=== PATIENT | male | born 1960 | race Caucasian/White ===

== ENCOUNTER 2022-11-27 22:55 | Emergency (ER) | payer MEDICAID, SELFPAY ==
[2022-11-27 23:17] VITALS: BP 215/132; PULSE 91; RESP 16; TEMP 36.6; O2SAT 98; BMI 31.5
--- NOTE | 2022-11-28 00:02 | PC.NURSE ---
patient hypertensive. patient states he has recently had a medication change to losartan and has been taking medication as prescribed. physician at bedside. manual done patient blood pressure 190/100 patient states his top number is usually 190. physician aware
--- NOTE | 2022-11-28 00:08 | XR_ITS ---
The [address] [address] Patient Name: RAMON MCMAHAN MRN: [id number] date: 1960 Sex: M Assigned Patient Location: ER Current Patient Location: ED.MAIN Accession/Order Number: [id number] Exam Date: 11/28/2022 00:22 Report Date: 11/28/2022 01:01 At the request of: BERNARDO PARDO Procedure: XR chest 1V EXAM: XR chest 1V HISTORY: weakness COMPARISON: Chest x-ray 05/16/2010. TECHNIQUE: AP portable upright view of the chest obtained. FINDINGS: The cardiomediastinal silhouette is nonenlarged. Pulmonary vascular markings are within normal limits. There is no focal airspace consolidation, sizable effusion or pneumothorax. The osseous structures appear grossly intact. IMPRESSION: No acute cardiopulmonary process identified. Electronically authenticated by: ANNETTE PENNY Date: 11/28/2022 01:01
--- NOTE | 2022-11-28 00:08 | ECG_ITS ---
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
--- NOTE | 2022-11-28 00:13 | ED.GENADUL1 ---
HPI - General Adult General Chief complaint: Headache Stated complaint: hEADACHE Time Seen by Provider: 11/28/22 00:08 Source: patient Limitations: no limitations History of Present Illness HPI narrative: Presents to emergency department complaining of a headache. Patient states he has had a gradual onset of headache for a couple of days. He has hypertension and also has been feeling chills, nausea, vomiting he is unable to keep anything down. He has been feeling fatigued and had 1 very large bowel movements diarrhea in the middle the night so he came in for evaluation. He denies any cough, sore throat, chest pain, shortness of breath. He states he has some nasal congestion. Denies any ear pain. He denies any paresthesias, or weakness. He denies any abdominal pain, hematuria, dysuria. He has taken all of his medications for hypertension. He denies any trauma. There are no other sick contacts in the household.This is not the worse headache of his lifetime. He was gradual onset. He has some photophobia. Related Data Home Medications Medication Instructions Recorded Confirmed albuterol sulfate 90 mcg/actuation inhalation 11/28/22 aerosol inhaler (Ventolin HFA) buprenorphine 8 mg-naloxone 2 mg film 11/28/22 sublingual film cefdinir 300 mg capsule mg 11/28/22 cholecalciferol (vitamin D3) 125 11/28/22 mcg (5,000 unit) tablet etodolac 500 mg tablet mg 11/28/22 glipizide 10 mg tablet mg 11/28/22 losartan 100 mg tablet mg 11/28/22 oxybutynin chloride 10 mg mg PO 11/28/22 tablet,extended release 24 hr quetiapine 50 mg tablet mg 11/28/22 sildenafil 100 mg tablet mg 11/28/22 Allergies Allergy/AdvReac Type Severity Reaction Status Date / Time No Known Drug Allergies Allergy Verified 11/27/22 23:23 Review of Systems ROS Status of ROS 10 or more systems reviewed and unremarkable except as noted in history and below [facility] Medical History (Updated 11/30/22 @ 09:01 by Pinky Diane MD) Social History Smoking status: Current every day smoker Exam Narrative Exam Narrative: Nurses notes and vital signs reviewed and patient is not hypoxic. General: Nontoxic, Well-appearing and in no apparent distress. Skin: Warm, dry, no pallor noted. No Rash Head: Normocephalic, atraumatic. Neck: Supple, non-tender. Eye: Pupils are equal, round and EOMI. No scleral icterus. Ears, Nose, Mouth, and Throat: TM clear, no posterior oropharynx erythema or nasal mucosal hypertrophy, uvula is mid-line Oral mucosa is moist Cardiovascular: Regular Rate and Rhythm without murmur, gallop or rub. Respiratory: No accessory muscle use or respiratory distress. Lungs are clear to auscultation, no wheezing, rales or rhonchi Chest Wall: no tenderness Back: No midline thoracic or lumbar vertebral tenderness. No CVA tenderness Musculoskeletal: normal ROM, no calf or popliteal tenderness, no lower extremity edema/swelling GI: Abdomen is soft, non-distended. Normal bowel sounds. No masses appreciated. No tenderness to palpation. No rebound, guarding, or rigidity noted. Neurological: A&O x4. No cranial nerve dysfunction observed. No truncal ataxia. Moves all extremities. Sensation intact. Psychiatric: Cooperative and interactive. Normal mood and affect. Constitutional Vital Signs, click to edit/add: Vital Signs - 24 hr 11/27/22 23:17 11/28/22 00:04 Temperature 98 F Pulse Rate [Monitor Right] 91 H Respiratory Rate 16 Blood Pressure [Right Arm] 215/132 H Pulse Oximetry 98 Oxygen Delivery Method Room Air Room Air Course Course Hospital Course: And had an IV established. Vital Signs Vital signs: Vital Signs Temperature 98 F 11/27/22 23:17 Pulse Rate 91 H 11/27/22 23:17 Respiratory Rate 16 11/27/22 23:17 Blood Pressure 215/132 H 11/27/22 23:17 Pulse Oximetry 98 11/27/22 23:17 Oxygen Delivery Method Room Air 11/27/22 23:17 Temperature 98 F 11/27/22 23:17 Pulse Rate 65 11/28/22 02:29 Respiratory Rate 16 11/27/22 23:17 Blood Pressure 122/82 H 11/28/22 04:40 Pulse Oximetry 98 11/27/22 23:17 Oxygen Delivery Method Room Air 11/28/22 00:04 Medical Decision Making MDM Narrative Medical decision making narrative: And had an IV established. He was given IV fluids, Zofran and analgesics. Patient's symptoms improved. All results were discussed with patient. Patient will be given a prescription of antibiotics. At this time the patient is without objective evidence of an acute process requiring hospitalization or inpatient management. The patient has remained hemodynamically stable. No additional indication for emergent studies at this time. I answered all questions. Discussed discharge instructions including standard anticipatory guidance and what should prompt a return to the emergency department, including if they get worse are not getting better or develops any new or concerning symptoms. I've given them specific time frame in which to follow-up, and who to follow-up with. The patient demonstrates understanding. Patient is nontoxic and stable for discharge with outpatient follow-up. This note was created with the assistance of a speech recognition program. Although the intention is to generate documents that actually reflects the content of the visit, no guarantees can be provided that every mistake has been identified and corrected by editing. Lab Data Lab results reviewed: Yes I reviewed the patient's lab results Labs: Lab Results 11/28/22 11/28/22 11/28/22 Range/Units 00:00 00:10 02:10 WBC 7.5 (4.0-11.0) 10^3/uL RBC 5.46 (4.70-6.10) 10^6/uL Hgb 14.6 (14.0-18.0) g/dL Hct 44.7 (42.0-54.0) % MCV 81.9 (80.0-94.0) fL MCH 26.7 (25.9-34.0) pg MCHC 32.7 (29.9-35.2) g/dL RDW 14.6 (11.0-15.0) % Plt Count 273 (150-450) 10^3/uL MPV 10.8 (9.5-13.5) fL Neut % (Auto) 62.3 (43.0-75.0) % Lymph % (Auto) 20.1 L (20.5-60.0) % [place] % (Auto) 8.4 (1.7-12.0) % Eos % (Auto) 8.1 H (0.9-7.0) % Baso % (Auto) 0.8 (0.2-2.0) % Neut # (Auto) 4.7 (1.4-6.5) 10^3/uL Lymph # (Auto) 1.5 (1.2-3.8) 10^3/uL [place] # (Auto) 0.6 (0.3-0.8) 10^3/uL Eos # (Auto) 0.6 (0.0-0.7) 10^3/uL Baso # (Auto) 0.1 (0.0-0.1) 10^3/uL Nucleated RBCs 0 Sodium 138 (136-145) mmol/L Potassium 3.4 L (3.5-5.1) mmol/L Chloride 102 (98-107) mmol/L Carbon Dioxide 28.5 (21.0-32.0) mmol/L Anion Gap 10.9 BUN 17.0 (7.0-18.0) mg/dL Creatinine 1.41 H (0.70-1.30) mg/dL Est GFR ( Amer) >60 (>=60) Est GFR (Non-Af Amer) 51 L (>=60) BUN/Creatinine Ratio 12.1 Glucose 112 H (74-106) mg/dL Calcium 9.0 (8.5-10.1) mg/dL Magnesium 2.0 (1.8-2.4) mg/dL Total Bilirubin 0.5 (0.2-1.0) mg/dL AST 21 (15-37) U/L ALT 23 (16-63) U/L Troponin I High Sens 10.1 (4.0-76.1) pg/mL NT-Pro-B Natriuret Pep 299.0 (<=900.0) pg/mL Total Protein 7.4 (6.4-8.2) g/dL Albumin 3.9 (3.4-5.0) g/dL Globulin 3.5 g/dL Albumin/Globulin Ratio 1.1 Lipase 127.0 (73.0-393.0) U/L TSH 3.046 (0.358-3.740) uIU/mL Urine Color Lt. yellow (YELLOW) Urine Clarity Clear (CLEAR) Urine pH 6.5 (5.0-9.0) Ur Specific [place] 1.010 (1.005-1.025) Urine Protein Negative (NEG/TRACE) mg/dL Urine Glucose (UA) Negative (NEGATIVE) mg/dL Urine Ketones Negative (NEGATIVE) mg/dL Urine Occult Blood Negative (NEGATIVE) Urine Nitrite Negative (NEGATIVE) Urine Bilirubin Negative (NEGATIVE) Urine Urobilinogen 0.2 (0.2-1.0) EU/dL Ur Leukocyte Esterase Negative (NEGATIVE) Urine RBC None seen (0-2) #/HPF Urine WBC None seen (NONE SEEN) #/HPF Ur Squamous Epith Cells Few A (NONE/RARE) #/LPF Ur Culture Indicated? No SARS-CoV-2 (PCR) Negative (NEGATIVE) Imaging Data Reviewed: Attestation: I have reviewed the pertinent imaging results. ECG Data Attestation: I personally reviewed and interpreted this ECG as follows: (Sinus rhythm at 72 bpm. No acute ischemic changes, normal axis) Discharge Plan Discharge Chief Complaint: Headache Clinical Impression: Headache, Viral syndrome, Hypertension Patient Disposition: Home, Self-Care Time of Disposition Decision: 03:10 Condition: Good Mode of Transportation: Private Vehicle Prescriptions / Home Meds: No Action oxybutynin chloride 10 mg tablet extended release 24hr PO glipizide 10 mg tablet sildenafil 100 mg tablet albuterol sulfate [Ventolin HFA] 90 mcg/actuation HFA aerosol inhaler INHALATION cefdinir 300 mg capsule losartan 100 mg tablet etodolac 500 mg tablet quetiapine 50 mg tablet cholecalciferol (vitamin D3) 125 mcg (5,000 unit) tablet buprenorphine-naloxone 8-2 mg film Instructions: Acute Diarrhea (ED), Chronic Hypertension (ED), Weakness (ED) Additional Instructions: paper chart- down time Stand Alone Forms: Portal Instructions Referrals: Physician,Non-Staff, MD [Physician] - 1 week Follow Up Appointments: Follow up with PCP in 1 day. Discharge Date/Time: 11/28/22 03:20
[2022-11-28 00:25] LABS: Basophils Absolute Auto 0.1 10^3/uL (0.0-0.1); Basophils Percent Auto 0.8 % (0.2-2.0); Eosinophils Absolute Auto 0.6 10^3/uL (0.0-0.7); Eosinophils Percent Auto 8.1 % (0.9-7.0); Hematocrit 44.7 % (42.0-54.0); Hemoglobin 14.6 g/dL (14.0-18.0); Immature Granulocytes Abs Auto 0.02 10^3/uL (0.00-0.03); Immature Granulocytes Pct Auto 0.3 % (0.0-0.5); Lymphocytes Absolute Auto 1.5 10^3/uL (1.2-3.8); Lymphocytes Percent Auto 20.1 % (20.5-60.0); Mean Corpuscular HGB Conc 32.7 g/dL (29.9-35.2); Mean Corpuscular Hemoglobin 26.7 pg (25.9-34.0); Mean Corpuscular Volume 81.9 fL (80.0-94.0); Mean Platelet Volume 10.8 fL (9.5-13.5); Monocytes Absolute Auto 0.6 10^3/uL (0.3-0.8); Monocytes Percent Auto 8.4 % (1.7-12.0); Neutrophils Absolute Auto 4.7 10^3/uL (1.4-6.5); Neutrophils Percent Auto 62.3 % (43.0-75.0); Nucleated Red Blood Cells 0; Platelet Count 273 10^3/uL (150-450); Red Blood Count 5.46 10^6/uL (4.70-6.10); Red Cell Distribution Width 14.6 % (11.0-15.0); White Blood Count 7.5 10^3/uL (4.0-11.0)
[2022-11-28 00:32] VITALS: BP 221/115
[2022-11-28] MEDS: ENALAPRILAT DIHYDRATE 1.25 MG/ML VIAL 2.5 MG IV (00:32)
[2022-11-28] MEDS: 0.9 % SODIUM CHLORIDE 1,000 ML 999 ML IV (00:33)
[2022-11-28 00:51] LABS: Alanine Aminotransferase 23 U/L (16-63); Albumin Globulin Ratio 1.1; Albumin Level 3.9 g/dL (3.4-5.0); Alkaline Phosphatase 100 U/L (46-116); Anion Gap 10.9; Aspartate Amino Transferase 21 U/L (15-37); BUN Creatinine Ratio 12.1; Bilirubin Total 0.5 mg/dL (0.2-1.0); Carbon Dioxide 28.5 mmol/L (21.0-32.0); Chloride 102 mmol/L (98-107); Estimated GFR (African America >60 (>=60); Estimated GFR (Non-African Ame 51 (>=60); Globulin 3.5 g/dL; Glucose 112 mg/dL (74-106); Potassium 3.4 mmol/L (3.5-5.1); Sodium 138 mmol/L (136-145); Total Protein 7.4 g/dL (6.4-8.2)
[2022-11-28 00:59] LABS: Thyroid Stimulating Hormone 3.046 uIU/mL (0.358-3.740); Troponin I High Sensitivity 10.1 pg/mL (4.0-76.1)
[2022-11-28 01:25] LABS: Influenza Virus A Antigen Negative; Influenza Virus B Antigen Negative; Internal Control Within Normal Limits
[2022-11-28 01:44] LABS: SARS-CoV-2 Ag Negative (NEGATIVE)
[2022-11-28 02:27] LABS: Bilirubin Urine NEGATIVE (NEGATIVE); Blood Urine NEGATIVE (NEGATIVE); Clarity Urine CLEAR (CLEAR); Color Urine LT. YELLOW (YELLOW); Glucose Urine UA NEGATIVE (NEGATIVE); Ketones Urine NEGATIVE (NEGATIVE); Leukocyte Esterase Urine NEGATIVE (NEGATIVE); Nitrite Urine NEGATIVE (NEGATIVE); Protein Urine NEGATIVE (NEG/TRACE); Urobilinogen Urine 0.2 EU/dL (0.2-1.0); pH Urine 6.5 (5.0-9.0)
[2022-11-28 02:29] VITALS: BP 150/98; PULSE 65
[2022-11-28 02:30] LABS: Bacteria Urine NONE SEEN #/HPF (NONE SEEN); Cast Seen? NONE SEEN #/LPF (NONE SEEN); Crystals Seen? None Seen #/HPF (None Seen); Mucus Urine NONE SEEN (NONE SEEN); RBC Urine NONE SEEN #/HPF (0-2); Squamous Epithelial Cell Urine FEW #/LPF (NONE/RARE); WBC Urine NONE SEEN #/HPF (NONE SEEN)
[2022-11-28 02:31] LABS: Urine Culture Indicated NO
[2022-11-28 04:40] VITALS: BP 122/82
[2022-11-28 14:48] LABS: SARS-CoV-2 NAA NOT DETECTED (NOT DETECTE)
== END 2022-11-28 03:20 | disposition home or self-care (01) ==
PROVIDERS: Emergency Provider Emergency Medicine
DX: R51.9 Headache, unspecified (principal); I10 Essential (primary) hypertension; R11.2 Nausea with vomiting, unspecified; F17.210 Nicotine dependence, cigarettes, uncomplicated
CPT/HCPCS: 36415; 71045; 80053; 81001; 81003; 83690; 83735; 83880; 84443; 84484; 85025; 87507; 87635; 87804; 87811; 93005; 96361; 96374; 99285; U0003

== ENCOUNTER 2023-11-11 10:58 | Outpatient (OUT) | payer MEDICAID, SELFPAY ==
--- NOTE | 2023-11-11 11:10 | XR_ITS ---
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 Tiny degenerative osteophytes along the articular margins of all 3 compartments. No fracture, dislocation, bone lesion. SOFT TISSUES:No visible soft tissue swelling. EFFUSION:Small joint effusion. OTHER: Negative. XR/XR knee RT 3V IMPRESSION: 1. No acute bone abnormality. 2. Small joint effusion and mild degenerative joint disease. Electronically authenticated by: FRANSICO CORTEZ Date: 11/12/2023 08:18
== END 2023-11-11 10:59 | disposition home or self-care (01) ==
DX: M25.561 Pain in right knee (principal)
CPT/HCPCS: 73562

== ENCOUNTER 2024-09-05 06:17 | Emergency (ER) | payer MEDICAID, SELFPAY ==
[2024-09-05 06:21] VITALS: BP 200/100; PULSE 97; TEMP 36.9; O2SAT 97; BMI 32.3
--- OUTSIDE RECORDS SUMMARY | 2024-09-05 06:23 | XMS_ITS | CCD ---
Author Organization [facility] Care Team Providers Care Card Hanger Name Role Phone DR NIKI ADHIKARI Primary Care Unavailable BERNARDO PIEDRA Admitting Unavailable BERNARDO PIEDRA Attending Unavailable BERNARDO PIEDRA Consulting Unavailable MD Angela Imkeerthi Attending Provider DO Shaka Barillas Primary Care Provider Shaka Barillas Primary Care Unavailable Rosalina Miller Attending Unavailable Rosalina Miller Admitting Unavailable Allergies Allergy Classification Reported Allergen(s) Allergy Type Date of Onset Reaction(s) Facility (1 source) Penicillins Drug allergy (disorder) 01-23-2013 [facility] Repository (1 source) traMADol Drug Allergy 01-23-2013 [facility] Medications Current Medications Medication Drug Class(es) Dates Sig (Normalized) Sig (Original) buprenorphine 8 mg / naloxone 2 mg sublingual film (1 source) Partial Opioid Agonist, Opioid Antagonist Start: 4 Buprenorphine-Nalox one Active 1 FILM SUBLINGUAL Three times daily November 17, 2023 12:00am cholecalciferol 0.125 mg oral tablet (1 source) Vitamin D Start: 4 take 5000 [IU] by mouth once daily Cholecalciferol (Vitamin D3) Active 5000 UNIT PO Daily November 17, 2023 12:00am dapagliflozin 10 mg oral tablet (1 source) Sodium-Glucose Cotransporter 2 Inhibitor Start: 4 take 1 tablet by mouth once daily Dapagliflozin Propanediol (Farxiga) 10 mg tablet Active 10 MG PO Daily November 17, 2023 12:00am etodolac 500 mg oral tablet (1 source) Nonsteroidal Anti-inflammatory Drug Start: 4 take 500 mg by mouth twice daily Etodolac Active 500 MG PO Twice daily November 17, 2023 12:00am finasteride 5 mg oral tablet (1 source) 5-alpha Reductase Inhibitor Start: 4 take 5 mg by mouth once daily Finasteride Active 5 MG PO Daily November 17, 2023 12:00am losartan potassium 100 mg oral tablet (1 source) Angiotensin 2 Receptor Saw Start: 4 take 100 mg by mouth once daily Losartan Active 100 MG PO Daily November 17, 2023 12:00am metFORMIN hydrochloride 1000 mg oral tablet (1 source) Biguanide Start: 4 take 1000 mg by mouth once daily Metformin Active 1000 MG PO Daily November 17, 2023 12:00am QUEtiapine 50 mg oral tablet (1 source) Atypical Antipsychotic Start: 4 take 50 mg by mouth once daily at bedtime Quetiapine Active 50 MG PO Daily at bedtime November 17, 2023 12:00am rosuvastatin calcium 10 mg oral tablet (1 source) HMG-CoA Reductase Inhibitor Start: 4 take 10 mg by mouth once daily Rosuvastatin Active 10 MG PO Daily November 17, 2023 12:00am sildenafil 100 mg oral tablet (1 source) Phosphodiesterase 5 Inhibitor Start: 4 take 100 mg by mouth once daily Sildenafil Active 100 MG PO Daily November 17, 2023 12:00am Sod Picosulf-Mag Ox-Citric Ac (1 source) Start: 4 take 1 dose by mouth once daily Sod Picosulf-Mag Ox-Citric Ac (Clenpiq) 10 mg-3.5 gram- 12 gram/175 mL solution Active 175 ML PO Daily 350 0 September 30, 2023 12:00am take first dose at 3PM evening before colonoscopy; 2nd dose at 9pm the night before colonoscopy tamsulosin hydrochloride 0.4 mg oral capsule (1 source) alpha-Adrenergic Saw Start: 4 take 0.4 mg by mouth once daily Tamsulosin Active 0.4 MG PO Daily November 17, 2023 12:00am Problems Problem Classification Problem Date Documented Da te Episodic/Chronic Chronic obstructive pulmonary disease and bronchiectasis (1 source) Bronchitis, not specified as acute or chronic; Translations: [BRONCHITIS NOT SPEC ACUTE/CHRON] Onset: 10-13-2022 Episodic Diabetes mellitus without complication (1 source) Type 2 diabetes mellitus without complications; Translations: [TYPE 2 DM WITHOUT COMPLICATIONS] Onset: 10-13-2022 Chronic Other aftercare (1 source) Other snf (current) drug therapy; Translations: [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] Onset: 10-13-2022 Episodic Other ear and sense organ disorders (3 sources) Otalgia, right ear; Translations: [OTALGIA RIGHT EAR] Onset: 10-11-2022 Episodic Otitis media and related conditions (1 source) Otitis media, unspecified, right ear; Translations: [OTITIS MEDIA UNSPECIFIED RIGHT EAR] Onset: 10-13-2022 Episodic Substance-related disorders (1 source) Nicotine dependence, cigarettes, uncomplicated; Translations: [NICOTINE DEPEND CIGARETTES UNCOMP] Onset: 10-13-2022 Chronic Vital Signs Date Time Vital Sign Value Performing Clinician Faci lity 11-17-2023 13:02-0400 Body height 170.18 cm DO Shaka Barillas Work Phone: [facility] 11-17-2023 13:020400 Body weight 90.71 kg DO Shaka Barillas Work Phone: [facility] Encounters Encounter Date Encounter Type Care Provider Facility Start: 11-10-2023 End: 11-10-2023 ambulatory DO Shaka Barillas Work Phone: [facility] Work Phone: Start: 11-10-2023 End: 11-10-2023 Departed Referred DO Shaka Barillas Work Phone: [facility] Work Phone: Start: 10-11-2022 End: 10-12-[address] [facility] [place] [place] Facility: Payers Date Payer Category Payer Self-pay 2022 Medicaid [id number] 1960 Unknown [id number] Unknown [id number] Social History Date Type Detail Facility Start: 11-17-2023 [facility] Start: 1960 Sex Assigned At Male [facility] Evaluation note Note Date & Type Note Facility Evaluation note No assessment information availa [facility] Work Phone: Summary Purpose Family History No Family History Records Found Relationship Condition Age at Onset Recorded Date/T evin mother Diabetes mellitus Unknown sister Malignant neoplasm of brain Unknown father Malignant neoplasm Unknown Advance Directives No Advanced Directives Records Found Advance Directive Response Recorded Date/ Time Advance Directives Yes September 27 2:44pm Chief Complaint and Reason for Visit Chief Complaint SCREENING Additional Source Comments (unrecognized sect ion and content) No Status Records FoundNo Status Records Found INFORMATION SOURCE (unrecogn ized section and content) DATE CREATED AUTHOR 10/14/2022 [facility] DATE CREATED AUTHOR AUTHOR'S ORGANIZ ATION 01/21/2024 [facility] Care Teams (unrecognized sec tion and content) Team Status: Active Member Role Status Dates Shaka Barillas DO Primary Care Provider Active Team Status: Inactive Member Role Status Dates Rosalian Miller MD Attending Provider Active Start: November 10, 2023 End: November 10, 2023 Shaka Barillas DO Primary Care Provider Active Start: November 10, 2023 End: November 10, 2023 Goals (unrecognized section and content) Goals may be documented in a n alternate section FOR RECORDS PERTAINING TO PATIENTS WHO ARE OR HAVE BEEN ENROLLED IN A CHEMICAL DEPENDENCY/SUBSTANCEABUSE PROGRAM, SOME INFORMATION MAY BE OMITTED. This clinical summary was aggregated from multiple sources. Caution should be exercised in using it in the provision of clinical care. This summary normalizes information from multiple sources, and as a consequence, information in this document may materially change the coding, format and clinical context of patient data. In addition, data may be omitted in some cases. CLINICAL DECISIONS SHOULD BE BASED ON THE PRIMARY CLINICAL RECORDS. [employer] [facility]. provides no warranty or guarantee of the accuracy or completeness of information in this document.
[2024-09-05 06:51] VITALS: BP 165/80
--- NOTE | 2024-09-05 07:23 | ED_ITS ---
HPI HPI - General Adult General Chief complaint: Skin/Abscess/Foreign Body Stated complaint: LEFT FINGER LACERATION Time Seen by Provider: 09/05/24 06:45 Source: patient Mode of arrival: walk-in Limitations: no limitations History of Present Illness HPI narrative: 64-year-old male presents for an injury to his left middle finger. This was sustained 2 weeks ago when he cut himself with a pocket knife. The wound is across the extensor side of the left middle finger PIP joint. It has been red and swollen. He has not yet sought medical care. He has had a tetanus shot within the last 10 years. Related Data Home Medications ?Medication ?Instructions ?Recorded ?Confirmed buprenorphine 8 mg-naloxone 2 mg 2 film 11/28/22 sublingual film cholecalciferol (vitamin D3) 125 5,000 unit DAILY 11/28/22 mcg (5,000 unit) tablet etodolac 500 mg tablet 500 mg PO BID 11/28/22 09/05/24 glipizide 10 mg tablet 10 mg PO DAILY 11/28/22 09/05/24 losartan 100 mg tablet 100 mg PO DAILY 11/28/22 09/05/24 sildenafil 100 mg tablet 100 mg PO Q24H 11/28/22 09/05/24 dapagliflozin propanediol 10 mg mg 09/05/24 tablet (Farxiga) finasteride 5 mg tablet mg 09/05/24 metformin 1,000 mg tablet mg 09/05/24 rosuvastatin 10 mg tablet mg 09/05/24 tamsulosin 0.4 mg capsule mg PO 09/05/24 Previous Rx's ?Medication ?Instructions ?Recorded cephalexin 500 mg capsule 500 mg PO QID 10 days #40 caps 09/05/24 Allergies Allergy/AdvReac Type Severity Reaction Status Date / Time No Known Drug Allergies Allergy Verified 09/05/24 06:26 Opioid HPI Opioid Management Most Recent Opioid Data: No Data to Display Review of Systems ROS Narrative A ten point review of systems is negative except as noted above. [facility] Medical History (Updated 09/05/24 @ 07:28 by Guido Rios MD) Prostate cancer ?C61 - Malignant neoplasm of prostate (ICD-10) Hypertension ?I10 - Essential (primary) hypertension (ICD-10) Diabetes ?E11.9 - Type 2 diabetes mellitus without complications (ICD-10) Social History Smoking status: Current every day smoker Little interest or pleasure in doing things: not at all Feeling down, depressed, or hopeless: not at all Exam Narrative Exam Narrative: Nurses note and vital signs reviewed and patient is not hypoxic. General: The patient appears well and in no apparent distress. Patient is resting comfortably on cart. Skin: Warm, dry, no pallor noted. There is no rash noted. Head: Normocephalic, atraumatic Eye: Normal conjunctiva, no drainage Ears, Nose, Mouth, and Throat: oral mucosa is moist. Nares patent. Cardiovascular: Regular Rate and Rhythm Respiratory: Patient is in no distress, no accessory muscle use, lungs are clear to auscultation, no wheezing, rales or rhonchi Back: non-tender GI: Soft and nontender Musculoskeletal: The left hand is examined. The left middle finger on the extensor side at the PIP joint has transverse laceration which is healing but there is erythema and swelling. He is unable to extend at the DIP joint of the middle finger. Neurological: A&O, normal speech Psychiatric: Cooperative Constitutional Vital Signs, click to edit/add: Last Vital Signs Temp 98.4 F 09/05/24 06:21 Pulse 97 H 09/05/24 06:21 Resp 18 09/05/24 06:21 BP 165/80 H 09/05/24 06:51 Pulse Ox 97 09/05/24 06:21 O2 Del Method Room Air 09/05/24 06:21 Course Vital Signs Vital signs: Vital Signs Temperature 98.4 F 09/05/24 06:21 Pulse Rate 97 H 09/05/24 06:21 Respiratory Rate 18 09/05/24 06:21 Blood Pressure 200/100 H 09/05/24 06:21 Pulse Oximetry 97 09/05/24 06:21 Oxygen Delivery Method Room Air 09/05/24 06:21 Temperature 98.4 F 09/05/24 06:21 Pulse Rate 97 H 09/05/24 06:21 Respiratory Rate 18 09/05/24 06:21 Blood Pressure 165/80 H 09/05/24 06:51 Pulse Oximetry 97 09/05/24 06:21 Oxygen Delivery Method Room Air 09/05/24 06:21 Medical Decision Making MDM Narrative Medical decision making narrative: X-ray on my interpretation shows no fractures or foreign body. I suspect that he has a tendon injury and he will follow-up with Dr. Griffith today at 10:15 AM. He was given IM Ancef and prescribed Keflex. Splint applied, application checked by me and found to be appropriate, he is neurovascularly intact. The importance of follow-up was discussed with the patient thoroughly. Differential Diagnosis Differential Diagnosis: Laceration, tendon injury, foreign body, fracture Imaging Data Left hand: My impression: Degenerative changes, no fracture or foreign body Discharge Plan Discharge Chief Complaint: Skin/Abscess/Foreign Body Clinical Impression: Laceration of left middle finger, Cellulitis, Injury of tendon of finger Patient Disposition: Home, Self-Care Time of Disposition Decision: 07:27 Condition: Good Mode of Transportation: Private Vehicle Prescriptions / Home Meds: New cephalexin 500 mg capsule 500 mg PO QID 10 Days Qty: 40 0RF No Action tamsulosin 0.4 mg capsule PO metformin 1,000 mg tablet finasteride 5 mg tablet rosuvastatin 10 mg tablet dapagliflozin propanediol [Farxiga] 10 mg tablet glipizide 10 mg tablet 10 mg PO DAILY sildenafil 100 mg tablet 100 mg PO Q24H losartan 100 mg tablet 100 mg PO DAILY etodolac 500 mg tablet 500 mg PO BID cholecalciferol (vitamin D3) 125 mcg (5,000 unit) tablet 5,000 unit DAILY buprenorphine-naloxone 8-2 mg film 2 film Print Language: Vietnamese Instructions: Cellulitis (ED), Finger Laceration (ED), Tendon Laceration (ED) Referrals: [facility] [Primary Care Provider] - 1 week
[2024-09-05] MEDS: CEFAZOLIN SODIUM 1,000 MG, WATER FOR INJECTION,STERILE 2.5 ML IM (07:46)
[2024-09-05] MEDS: IBUPROFEN 400 MG TABLET 800 MG PO (07:57)
== END 2024-09-05 08:03 | disposition home or self-care (01) ==
PROVIDERS: Emergency Provider Emergency Medicine
DX: S61.213A Laceration without foreign body of left middle finger without damage to nail, initial encounter (principal); L03.012 Cellulitis of left finger; W26.0XXA Contact with knife, initial encounter; S66.902A Unspecified injury of unspecified muscle, fascia and tendon at wrist and hand level, left hand, initial encounter
CPT/HCPCS: 73130; 96372; 99284; J0690